=== PATIENT | male | born 1970 | race Caucasian/White ===

== ENCOUNTER → 2017-03-28 | Outpatient (CLI) | payer BC ==
[2017-03-28 18:28] LABS: BLOOD UREA NITROGEN 15 mg/dl (7-18); BUN/CREATININE RATIO 15.3 (10-20); CALCIUM 9.6 mg/dl (8.5-10.1); CARBON DIOXIDE 24 mmol/L (21-32); CHLORIDE 108 mmol/L (98-107); GLUCOSE 112 mg/dl (70-99); POTASSIUM 3.6 mmol/L (3.5-5.1); SODIUM 141 mmol/L (136-145)
[2017-03-28 18:31] LABS: ALT/SGPT 23 U/L (12-78); CHOLESTEROL 196 mg/dl (0-200); CHOLESTEROL/HDL RATIO 4.8; HDL CHOLESTEROL 41 mg/dl; LDL CHOLESTEROL CALCULATED 130 mg/dl; TRIGLYCERIDES 126 mg/dl (0-150); VERY LOW DENSITY LIPOPROT CALC 25 mg/dl
== END | disposition home or self-care (01) ==
LOC: C.LABMFLN 12:32
PROVIDERS: ATTEND Family Medicine
DX: Z13.1 Encounter for screening for diabetes mellitus (principal); Z13.220 Encounter for screening for lipoid disorders